=== PATIENT | male | born 1990 | race American Indian/Alaskan Native ===

== ENCOUNTER 2017-01-05 16:32 | Emergency (ER) | payer SELFPAY ==
[2017-01-05 16:53] VITALS: BP 122/79
--- NOTE | 2017-01-05 17:41 | Emergency Department Report ---
Entered by CLEMENCIA OWENS, acting as scribe for RIYA LITTLE NP. Chief Complaint: Chest Pain Stated Complaint: CHEST PAIN Time Seen by Provider: 01/05/17 17:16 - HPI History of Present Illness: Pt is non-toxic, non ill appearing, in no acute distress with c/o throbbing chest pain and tightness is his throat that started this morning. Patient states his chest pain radiates to his back. Reports cough. Pt states that his chest tightens up with cough. Patient denies nausea and vomiting. Denies headache and stiff neck Denies Hx of chest pain and heart problems - ROS Review of Systems: Reports chest pain and cough. Reports sore throat. Patient denies nausea and vomiting. Denies headache and stiff neck - Exam Vital Signs: Vital Signs 01/05/17 16:49 Temperature 99.3 F Pulse Rate 102 H Respiratory 18 Rate Blood Pressure 122/79 O2 Sat by Pulse 102 H Oximetry Physical Exam: Constitutional: Non toxic appearing, NAD. ENT: 2+ tonsillitis with oral pharynx erythema. Rhinorrhea present Cardiovascular: Normal rate and rhythm with normal S1/S2 sounds. Chest pain is not reproducible with palpation. No edema. no rubs, no gallops. Respiratory: No respiratory distress. Lung sounds clear to auscultation bilaterally. MSE screening note: Focused history and physical exam performed. Due to findings the following was ordered: CBC, BMP, CCK, Troponin, Chest X-ray, EKG was ordered for patient. Patient discussed with doctor:: LISA SHELL (Continue with the lab eval. Keep patient as level 3.) ED Disposition for MSE Condition: Stable This documentation as recorded by the scribe,CLEMENCIA OWENS,accurately reflects the service I personally performed and the decisions made by SIDNEY ward MARTIN, [place].
[2017-01-05 18:01] LABS: Basophils % (Auto) 0.4 % (0.0-1.8); Hematocrit 47.2 % (35.5-45.6); Hemoglobin 15.3 gm/dl (11.8-15.2); Mean Corpuscular HGB Conc 32 % (32-34); Mean Corpuscular Hemoglobin 27 pg (28-32); Mean Corpuscular Volume 83 fl (84-94); Platelet Count 222 K/mm3 (140-440); Red Blood Count 5.68 M/mm3 (3.65-5.03); Red Cell Distribution Width 14.9 % (13.2-15.2); White Blood Count 17.5 K/mm3 (4.5-11.0)
[2017-01-05 18:02] LABS: Creatine Kinase MB 1.9 ng/mL (0.0-4.0)
[2017-01-05 18:04] LABS: Anion Gap 21 mmol/L; Blood Urea Nitrogen 15 mg/dL (9-20); Calcium 10.1 mg/dL (8.4-10.2); Carbon Dioxide 25 mmol/L (22-30); Chloride 98.3 mmol/L (98-107); Creatine Kinase 274 units/L (55-170); Glucose 96 mg/dL (75-100); Potassium 4.5 mmol/L (3.6-5.0); Sodium 140 mmol/L (137-145)
--- NOTE | 2017-01-06 08:57 | XRay Report ---
ROUTINE CHEST, TWO VIEWS: HISTORY: chest pain. The trachea, heart, mediastinal contour, lung martinez and bony thorax are unremarkable. IMPRESSION: Unremarkable chest x-ray.
== END 2017-01-05 18:50 | disposition left against medical advice (07) ==
LOC: ED 16:32
DX: R07.9 Chest pain, unspecified (principal); Z53.21 Procedure and treatment not carried out due to patient leaving prior to being seen by health care provider
CPT/HCPCS: 36415; 71020; 80048; 82550; 82553; 84484; 85025; 93005; 93010